=== PATIENT | male | born 1935 | race Asian ===

== ENCOUNTER 2016-10-06 01:06 | Emergency (ER) | payer OTHER ==
[~2016-10-06] VITALS: Ht 165.1 cm; Wt 81.6 kg
[2016-10-06 01:09] VITALS: BP 147/70; PULSE 102; RESP 18; TEMP 101.1; O2SAT 97
--- NOTE | 2016-10-06 01:09 | NUR ---
Patient to ER bed 3 to gown for evaluation. Side rails up.
--- NOTE | 2016-10-06 01:10 | NUR ---
PT IS AOX4, C/O COUGH X 2 DAYS. PT IS FEBRILE WITH 101.1 F PT DENIES ANY PAIN.
[2016-10-06] MEDS ORDERED: DILT120C89 PO (01:50)
--- NOTE | 2016-10-06 01:50 | NUR ---
ER at bedside examining patient.
[2016-10-06] MEDS ORDERED: OSELTAMIVIR PHOSPHATE 75 MG CAPSULE PO ONE ×2 (03:30→04:15)
[2016-10-06] MEDS ORDERED: ACETAMINOPHEN 325 MG TABLET PO ONE (03:45)
[2016-10-06] MEDS ORDERED: ONDANSETRON 4 MG ODT TAB PO ONE (04:15)
[2016-10-06 04:30] VITALS: BP 135/61; PULSE 92; RESP 18; TEMP 99.6; O2SAT 97
--- NOTE | 2016-10-06 04:30 | NUR ---
Patient given written and verbal discharge instructions and verbalizes understanding. ER MD discussed with patient the results and treatment provided. Patient in stable condition. ID arm band removed. Rx of TAMIFLU given. Patient educated on pain management and to follow up with PMD. Pain Scale 0/10. Opportunity for questions provided and answered.
== END 2016-10-06 04:30 | disposition home or self-care (01) ==
LOC: SED 01:06
DX: J09.X2 Influenza due to identified novel influenza A virus with other respiratory manifestations (principal); I10 Essential (primary) hypertension; I48.91 Unspecified atrial fibrillation
CPT/HCPCS: 36415; 71010; 86710; 93005; 99285; G9035; Q0162

== ENCOUNTER 2017-11-05 23:30 | Emergency (ER) | payer OTHER ==
[~2017-11-05] VITALS: Ht 165.1 cm; Wt 81.6 kg
[~2017-11-05 23:30] MED LIST: DILT120C89 PO
[2017-11-05 23:50] VITALS: BP_SYST 137
[2017-11-06 02:23] VITALS: BP_SYST 141
== END 2017-11-06 02:00 | disposition home or self-care (01) ==
LOC: SED 23:30
DX: J18.1 Lobar pneumonia, unspecified organism (principal); H10.9 Unspecified conjunctivitis; I10 Essential (primary) hypertension; I48.91 Unspecified atrial fibrillation
CPT/HCPCS: 36415; 71045; 86710; 99285